=== PATIENT | female | born 1960 | race Two or more races ===

== ENCOUNTER 2016-05-10 17:59 | Emergency (ER) | payer OTHER ==
[2016-05-10 18:07] VITALS: BP 133/70; PULSE 101; TEMP 103; BMI 28.7
[2016-05-10] MEDS ORDERED: ACETAMINOPHEN 325 MG TABLET (FP) PO ONE (18:22)
[2016-05-10] MEDS ORDERED: DEXAMETHASONE LIQUID 0.5 MG/5 ML 240 ML BULK BOTTLE PO ONE (20:11)
[2016-05-10] MEDS ORDERED: ALBUTEROL SO4 2.5/IPRATROPIUM 0.5 INH SOL 3 ML VIAL.NEB. NEB ONE (20:11)
[2016-05-10] MEDS ORDERED: DEXAMETHASONE SOD PHOSPHATE 10 MG/1 ML VIAL ONE (20:14)
--- NOTE | 2016-05-10 20:16 | PDOC ---
History of Present Illness - General Chief Complaint: Cold Symptoms Stated Complaint: COLD SYMPTOMS Time Seen by Provider: 05/10/16 19:44 History Source: Patient Exam Limitations: No Limitations - History of Present Illness Initial Comments: 05/10/16 20:13 Chief complaint: Fever, sore throat, cough, body aches, 3 days History of present illness: Patient is a 55-year-old female here today with fever, sore throat, dry cough with body aches and headache when fever is elevated 3 days. Patient reports difficulty swallowing due to soreness of throat. Patient is not short of breath. Patient has had decreased appetite 3 days. The patient does not have fever presently. Patient did not have an influenza vaccine. Patient's has been sick with similar symptoms and diagnosed recently with pneumonia. Patient also reports having generalized weakness. Timing/Duration: getting worse Severity: moderate Associated Symptoms: reports: cough (non productive), fever/chills, headaches, loss of appetite, other (sore throat ) Past History - Past Medical History Allergies/Adverse Reactions: Allergies Allergy/AdvReac Type Severity Reaction Status Date / Time No Known Allergies Allergy Verified 05/10/16 18:07 Home Medications: Ambulatory Orders Guaifenesin Dm [Mucinex Dm -] 1 tablet PO Q12H PRN #10 tab.er.12h MDD 2 HTN: Yes - Psycho/Social/Smoking Cessation Hx Suicidal Ideation: No Smoking History: Never smoked Information on smoking cessation initiated: No Hx Alcohol Use: No Drug/Substance Use Hx: No Substance Use Type: None Review of Systems - Review of Systems Able to Perform ROS?: Yes Constitutional: Yes: Fever, Loss of Appetite, Malaise HEENTM: Yes: Throat Pain Respiratory: Yes: Cough. No: Shortness of Breath, SOB with Exertion, SOB at Rest, Stridor, Wheezing, Productive cough Cardiac (ROS): No: Symptoms Reported ABD/GI: No: Symptoms Reported : No: Symptoms Reported Musculoskeletal: Yes: Other (generalized bodyaches) Integumentary: No: Symptoms Reported Neurological: Yes: Headache (generalized) *Physical Exam - Vital Signs Last Vital Signs Temp Pulse Resp BP Pulse Ox 103 F H 101 H 18 133/70 100 05/10/16 18:06 05/10/16 18:06 05/10/16 18:06 05/10/16 18:06 05/10/16 18:06 - Physical Exam General Appearance: Yes: Appropriately Dressed HEENT: positive: EOMI, ADRIANE, TMs Normal, Pharyngeal Erythema, Nasal Congestion, Rhinorrhea (clear b/l ). negative: Tonsillar Exudate, Tonsillar Erythema Neck: negative: Lymphadenopathy (R), Lymphadenopathy (L) Respiratory/Chest: positive: Lungs Clear, Normal Breath Sounds. negative: Chest Tender, Respiratory Distress Cardiovascular: positive: Regular Rhythm, Regular Rate, S1, S2 Gastrointestinal/Abdominal: positive: Normal Bowel Sounds, Soft. 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 Patient reports difficulty swallowing due to soreness of throat. Patient is not short of breath. Patient has had decreased appetite 3 days. The patient does not have fever presently. Patient did not have an influenza vaccine. Patient's has been sick with similar symptoms and diagnosed recently with pneumonia. Patient also reports having generalized weakness. influenza like illness X 3 days PLAN: Decadron 10 mg by mouth now Duoneb now Chest x-ray PA and lateral no infiltrate noted Mucinex DM 1 tab q12 hr prn cough for 5 days 05/10/16 21:08 05/10/16 21:09 *DC/Admit/Observation/Transfer Diagnosis at time of Disposition: Influenza-like illness - Discharge Dispostion Disposition: HOME Condition at time of disposition: Stable - Referrals Referrals: Mimi Marcus MD [Primary Care Provider] - - Patient Instructions Additional Instructions: Follow-up with your care primary care provider when symptoms subside Return to emergency room if any difficulty breathing or swallowing Drink a lot a fluids and rest Take ibuprofen every 6 hours 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
== END 2016-05-10 21:17 | disposition home or self-care (01) ==
LOC: JERFT 17:59
PROC: 3E0F7GC Introduction of Other Therapeutic Substance into Respiratory Tract, Via Natural or Artificial Opening (ICD-10-PCS; principal; 2016-05-10)
DX: J11.1 Influenza due to unidentified influenza virus with other respiratory manifestations (principal); I10 Essential (primary) hypertension
CPT/HCPCS: 71020-TC; 99281-25

== ENCOUNTER 2020-12-30 21:00 | Emergency (ER) | payer OTHER ==
[2020-12-30 21:06] VITALS: BP 136/87; PULSE 75; TEMP 97; BMI 30.9
[2020-12-30] MEDS ORDERED: LIDOCAINE 5% TOPICAL PATCH TP ONE (21:45)
[2020-12-30] MEDS ORDERED: diazePAM 5 MG TABLET PO ONE (21:45)
[2020-12-30] MEDS ORDERED: IBUPROFEN 600 MG TABLET (FP) PO ONE ×2 (21:45→21:52)
[2020-12-30] MEDS ORDERED: diazePAM 5 MG TABLET ONE (21:52)
[2020-12-30] MEDS ORDERED: LIDOCAINE 5% TOPICAL PATCH ONE (21:52)
[2020-12-30] MEDS ORDERED: LIDOCAINE PATCH REMOVAL MC ONE (22:00)
== END 2020-12-31 01:16 | disposition home or self-care (01) ==
LOC: JER 21:00
DX: M62.830 Muscle spasm of back (principal)
CPT/HCPCS: 72070-TC-FY; 93005; 93010; 99284-25

== ENCOUNTER 2021-03-05 08:57 | Emergency (ER) | payer OTHER ==
[2021-03-05 09:07] VITALS: BMI 32.8
[2021-03-05] MEDS ORDERED: ACETAMINOPHEN 1000 MG/100 ML VIAL IVPB ONE (09:40)
[2021-03-05] MEDS ORDERED: MAG HYDROX/ALH/SMC/DPHA/LIDO 240 ML MOUTHWASH MM ONE (09:44)
[2021-03-05] MEDS ORDERED: ACETAMINOPHEN INJECTION 100 ML IVPB ONE (10:19)
[2021-03-05] MEDS ORDERED: MAG HYDROX/AL HYDROX/SIMETH 30 ML UNIT-DOSE CUP ONE (10:19)
[2021-03-05 10:36] LABS: BASO % 0.8 % (0-2.0); EOS % 2.5 % (0-4.5); HEMATOCRIT 38.8 % (32.4-45.2); HEMOGLOBIN 13.2 GM/dL (10.7-15.3); LYMPH % 17.9 % (8-40); MCH 30.5 pg (25.7-33.7); MCHC 34.2 g/dl (32.0-36.0); MEAN CELL VOLUME 89.2 fl (80-96); MONO % 10.7 % (3.8-10.2); NEUT % 68.1 % (42.8-82.8); PLATELET COUNT 198 10^3/uL (134-434); RBC 4.34 M/mm3 (3.60-5.2); RDW 13.9 % (11.6-15.6); WHITE BLOOD COUNT 9.8 K/mm3 (4.0-10.0)
[2021-03-05 10:44] LABS: INR 1.06 (0.83-1.09); PROTHROMBIN TIME (PATIENT) 11.9 SEC (9.7-13.0)
[2021-03-05 10:47] LABS: ALBUMIN 3.4 g/dl (3.4-5.0); CALCIUM 9.7 mg/dL (8.5-10.1)
[2021-03-05 10:51] LABS: BILIRUBIN,TOTAL 0.5 mg/dL (0.2-1); CREATININE 0.8 mg/dL (0.55-1.3)
[2021-03-05 10:52] LABS: TOT PROT 7.4 g/dl (6.4-8.2)
[2021-03-05] MEDS ORDERED: DEXAMETHASONE SOD PHOSPHATE 10 MG/1 ML VIAL IVPUSH ONE (13:23)
[2021-03-05] MEDS ORDERED: DEXAMETHASONE SOD PHOSPHATE 10 MG/1 ML VIAL ONE (13:28)
[2021-03-05 17:15] VITALS: BP 122/68; PULSE 66; TEMP 98.1
== END 2021-03-05 17:23 | disposition short-term general hospital (02) ==
LOC: JER 08:57
PROC: 3E0333Z Introduction of Anti-inflammatory into Peripheral Vein, Percutaneous Approach (ICD-10-PCS; principal; 2021-03-05)
PROC: 3E033GC Introduction of Other Therapeutic Substance into Peripheral Vein, Percutaneous Approach (ICD-10-PCS; 2021-03-05)
DX: K12.2 Cellulitis and abscess of mouth (principal); S00.552A Superficial foreign body of oral cavity, initial encounter; W45.8XXA Other foreign body or object entering through skin, initial encounter
CPT/HCPCS: 36415; 70491-TC; 80053; 85025; 85610; 85730; 86850; 86900; 86901; 96374; 96375; 99285-25; C9803; J0131; J1100; U0003; U0005